=== PATIENT | female | born 1950 | race Caucasian/White ===

== ENCOUNTER → 2023-10-20 14:22 | Outpatient (REF) | payer MEDICARE, OTHER, SELFPAY | LOC: RAD 14:22 | PROVIDERS: ATTENDING PHYSICIAN Podiatrist Foot & Ankle Surgery; FAMILY PHYSICIAN Internal Medicine | DX: I73.9 Peripheral vascular disease, unspecified (principal) | CPT/HCPCS: 93925 ==

== ENCOUNTER → 2023-12-27 06:27 | Day surgery (SDC) | payer MEDICARE, OTHER, SELFPAY ==
[2023-12-27 07:50] LABS: Glucose - Point of Care 113 mg/dl (70-99)
== END ==
LOC: GI 06:27
PROVIDERS: ATTENDING PHYSICIAN Internal Medicine
DX: Z12.11 Encounter for screening for malignant neoplasm of colon (principal); D12.3 Benign neoplasm of transverse colon; K63.5 Polyp of colon; K57.30 Diverticulosis of large intestine without perforation or abscess without bleeding; Z86.010 Personal history of colon polyps
CPT/HCPCS: 45385; 45380; 88305; 82962

== ENCOUNTER 2024-11-26 02:34 | Inpatient (IN) | payer MEDICARE, OTHER, SELFPAY ==
[2024-11-25 19:44] VITALS: BP 121/87
[2024-11-25 21:43] VITALS: BMI 29.8
--- NOTE | 2024-11-25 21:57 | EDRN ---
Pt says on November 14 pt walked down the steps and did not hold on with both hands. Pt slid the last two stairs injuring L buttock (bruise). Pt went to exercise class on Tuesday and says she usually half stands/sits. Pt unable to do exercises while
standing and says she started getting worse. Walking more difficult so pt went to her doctor this week and was told to take naproxen which did not help her pain. Pt says 2 days ago she became incontinent of urine - if she walked she urinated and
she is not wearing a diaper. Pt now has pain with walking, sitting and laying - much worse when standing/walking. Pt went to pain management doctor on Tuesday and had an epidural. Pt had a MRI Tuesday of her back and has the disc with her.
Incontinence started yesterday and pain is getting worse daily. Pain is in lower back, R groin and down R leg. Pt notes intermittent numbness in R leg. No weakness. No pain medication taken since epidural on Tuesday. No fevers. Pt notes urinary
frequency, no blood or burning with urination.
[2024-11-25 22:05] VITALS: BP 142/77
--- NOTE | 2024-11-25 22:22 | ED.GENMED ---
History of Present Illness
General
Chief Complaint: Generalized Pain
Time Seen by Provider: 11/25/24 21:52
History of Present Illness
History of Present Illness:
Patient is 74-year-old woman with history of hypertension, hyperlipidemia, diabetes presenting to the emergency department back pain. Patient states that on November 14 she fell down 2 steps landing on her right buttocks. She developed some back pain.
6 days ago she was at a workout class when she was having difficulty secondary to the pain. She went to her pain management doctor who gave her her injection but she did not have any relief. She states that the pain is in her right lower back and
radiates down her right leg. No saddle anesthesia. No numbness tingling. She does have weakness secondary to the pain. She did get an MRI completed 2 days ago from her pain management doctor. Yesterday she developed urinary incontinence that
has been ongoing so she came in for further evaluation
Phy Exam
Physical Exam
Physical Exam:
GENERAL: in no acute distress
HEENT: normocephalic, extraocular movements intact, moist oral mucosa
NECK: normal inspection
Back: Tenderness to the lower right back around L4-L5
RESPIRATORY: no respiratory distress, clear to auscultation bilaterally
CARDIOVASCULAR: regular rate and rhythm
ABDOMEN/: soft, non-distended, non-tender to palpation, no rebound or guarding
EXTREMITIES: non-tender, no edema/swelling
NEUROLOGIC: alert and oriented x 3, cranial nerves II-XII intact, right upper extremity strength 5/5, left upper extremity strength 5/5, right lower extremity strength 5/5, left lower extremity strength 5/5, normal sensation to light touch, normal
[id number] and fydj-mt-geib, gait not tested formally, positive straight leg raise to the right leg
SKIN: warm
Course
Orders/Labs/Results
Orders:
Orders
11/25/24 22:22
Bladder Scan- Treatment ONCE
Comment: post void
11/25/24 22:31
Urinalysis Reflex To Culture Urgent
Date Specimen was Collected: 11/25/24
Time Specimen was Collected: 22:29
11/25/24 23:11
CR Lumbar Spine 2 Or 3 Views Urgent
Comment:
Reason For Exam: ttp l4/l5
11/26/24 01:05
Basic Metabolic Panel Urgent
Complete Blood Count/With Diff Urgent
Abnormal Lab Results
11/25/24
22:31
Urine Glucose 4+ A
(Negative)
Vital Signs
Initial and Last Documented VS:
Initial Vital Signs
Temp Pulse Resp BP Pulse Ox
98.7 F 81 16 121/87 98
11/25/24 19:44 11/25/24 19:44 11/25/24 19:44 11/25/24 19:44 11/25/24 19:44
Last Documented Vital Signs
Temp Pulse Resp BP Pulse Ox
98.7 F 72 16 142/77 98
11/25/24 19:44 11/25/24 22:05 11/25/24 22:05 11/25/24 22:05 11/25/24 22:05
MDM/Problems Addressed
Differential Diagnosis Includes:
Patient is a 74-year-old woman presenting to the emergency department back pain that radiates down her leg now with urinary incontinence. No saddle anesthesia. No weakness. Vitals are unremarkable. C exam is reassuring given that patient has
equal strength in her bilateral lower extremities with no sensory deficits. Oncern for radiculopathy versus compression fracture. Could be complication from epidural injection. Less likely cauda equina as patient does not have any saddle
anesthesia or any neurodeficits. Urinary incontinence could be secondary to urine infection as she has been having some frequency as well. Patient did have the MRI imaging disc that has not been read. Discussed with radiology who will review the
study but recommends to start off with xray in the interim.
*Critical Care Note
Total Time (30-74mins, 75-104mins- exclusive of procedures): Not Applicable
Update Note
Update Note:
post void residual is 0. urine is not infected
Patient is able to read the MRI. I did receive a critical call from them as there is a large epidural collection in the top of L3 down to L5-S1 that is about 7 cm in length 1.6 cm in width. This is causing severe spinal stenosis and compression of
the nerve roots most pronounced at L3-L4 and L4-L5. I did immediately discuss the results with Dr. Hendrickson from neurosurgery. Given the patient's not having any urinary retention and is ambulating around the room with equal strength in the lower
extremities that we can admit her to the hospital here and obtain repeat MRI in the morning to see if there is any changes from this MRI completed 2 days ago. Depending on the results of the MRI plan for surgical evacuation versus medical
management. Discussed with hospitalist who excepted patient to their service.
ED Attending Note
-
Portions of this chart may have been created with voice recognition software.� Occasional wrong word or��sound alike� substitutions may have occurred due to the inherent limitations of voice recognition software.
Discharge Plan
Departure
Patient Disposition: Admit
Date of Disposition: 11/26/24
Time of Disposition: 01:14
Presentation/result/management discussed w/ accepting MD/DO: Hospitalist
Discharge Problem:
Back pain
Prescriptions:
No Action
atorvastatin 40 mg Tablet
40 mg PO DAILY
carvedilol 12.5 mg Tablet
12.5 mg PO BID
sucralfate 100 mg/mL Suspension
10 ml PO QIDPRN PRN (Reason: reflux)
famotidine 40 mg Tablet
40 mg PO DAILY
amlodipine 5 mg Tablet
5 mg PO DAILY
spironolactone 25 mg Tablet
25 mg PO BID
modafinil 200 mg Tablet
200 mg PO BID
montelukast 10 mg Tablet
10 mg PO DAILY
zaleplon 10 mg Capsule
10 mg PO HS PRN (Reason: sleep)
ipratropium bromide 42 mcg (0.06 %) Walton,Non-Aerosol
1 spray INTRANASAL BID
losartan 100 mg Tablet
100 mg PO DAILY
finasteride 5 mg Tablet
2.5 mg PO DAILY
ezetimibe 10 mg Tablet
10 mg PO DAILY
metformin 500 mg Tablet Extended Release 24hr
500 mg PO DAILY
omeprazole-sodium bicarbonate 40-1.1 mg-gram Capsule
1 cap PO DAILY
cholecalciferol (vitamin D3) [Vitamin D3] 25 mcg (1,000 unit) Tablet
25 mcg PO DAILY
Gaviscon 80-14.2 mg Tablet,Chewable
1 tab PO DAILY PRN (Reason: reflux)
azelastine-fluticasone 137-50 mcg/spray Walton,Non-Aerosol
1 spray INTRANASAL BID
loteprednol etabonate 0.5 % Drops,Gel
1 drp BOTH EYES BID
dapagliflozin propanediol 5 mg Tablet
5 mg PO DAILY
Arnuity Ellipta 100 mcg/actuation Blister With Device
1 inh INHALATION DAILY
Mounjaro 5 mg/0.5 mL Pen Injector
5 mg SC QWEEK
Referrals:
UNKNOWN - PT DOES,NOT KNOW [Family Provider]
Interventions
Interventions:
*Risk Screen - Suicide Last Done: 11/25/24 19:44
*General Assessment Last Done: 11/25/24 21:43
*Neglect/Abuse Screening Last Done: 11/25/24 19:44
*ED- Fall Risk Assessment Last Done: 11/25/24 19:44
Discharge Date and Time
Print Language: SWEDISH
[2024-11-25 22:37] LABS: Urine Albumin Negative (Neg - Trace); Urine Bilirubin Negative (Negative); Urine Character Clear (Clear); Urine Color Yellow; Urine Glucose 4+ (Negative); Urine Ketone Negative (Negative); Urine Leukocyte Negative (Negative); Urine Nitrite Negative (Negative); Urine Occult Blood Negative (Negative); Urine Specific Gravity 1.005 (<1.030); Urine Urobilinogen Negative (Neg - 1+)
[2024-11-26] VITALS (16 sets, daily range): BP systolic 116–145; BP diastolic 72–106; PULSE 68–85
[2024-11-26 01:39] LABS: % Basophils 0.4 % (0-2); % Eosinophils 0.1 % (0-6); % Immature Granulocytes 2.2 % (0-0.5); % Monocytes 7.7 % (1.7-9.3); % Neutrophils 80.6 % (42.2-75.2); Absolute Basophils 0.1 10^3/uL (0-0.2); Absolute Immature Granulocytes 0.3 10^3/uL (0-0.05); Absolute Monocytes 0.9 10^3/uL (0.1-0.6); Absolute Neutrophils 9.3 10^3/uL (1.4-6.5); Hemoglobin 14.1 g/dL (12.0-16.0); Mean Corp Hgb Conc. 34.4 g/dL (33.0-37.0); Mean Corpuscular Hgb 33.3 pg (27.0-31.0); Mean Corpuscular Volume 96.9 fL (81.0-99.0); Mean Platelet Volume 9.6 fL (7.4-10.4); Nucleated Red Blood Cells % 0 %; Platelet Count 312 10^3/uL (130-400); Red Blood Cell Count 4.23 10^6/uL (4.20-5.40); Red Cell Dist. Width 14.6 % (11.5-14.5); White Blood Cell Count 11.6 10^3/uL (4.8-10.8)
[2024-11-26] MEDS: MORPHINE SULFATE 2 MG IV ×3 (01:56→19:16)
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
[2024-11-26 02:10] LABS: Blood Urea Nitrogen 38 mg/dl (7-17); Calcium 9.9 mg/dl (8.4-10.2); Carbon Dioxide 21 mmol/L (22-30); Chloride 109 mmol/L (98-107); Estimated Creatinine Clearance 64 ml/min; Glucose 171 mg/dl (70-99); Sodium 140 mmol/L (135-145); eGFR > 60.00
--- NOTE | 2024-11-26 02:34 | EDRN ---
Pt is an IMU admission assigned bed in ICU - attempted to call report, will call back
--- NOTE | 2024-11-26 02:43 | EDRN ---
Report given to ICU
--- NOTE | 2024-11-26 03:18 | PTCARENOTE ---
Pt. arrived from ED as IMU Overflow.
Used walking sticks to ambulate to bed.
Hemodynamically stable. Placed on Nightly CPAP per resp.
Plan of care explained, very argumentative, all questions answered.
--- NOTE | 2024-11-26 07:39 | W.PN.UPDATE ---
Update Note
Progress Note Update
Full consult to follow.
I was contacted overnight by Dr. Roland re: patient's presentation and exam.
Hx of L3-5 fusion with interbody fusion.
Patient reported to have exacerbation of chronic back pain which prompted [place] on 11/23/24, prior to her previously scheduled MRI lumbar spine.
Patient with worsening pain and reported urinary incontinence. However, in ED, I was informed that PVR was 0.
Reported normal/baseline strength in legs.
Imaging without contrast reviewed which demonstrates collection in epidural space from L3-5/S1 where previous laminectomy is.
Some gas in epidural space which is likely periprocedural.
Diff Dx: epidural hematoma vs CSFoma, vs abscess, less likely.
Given patient is already decompressed and that PVR is reportedly normal, recommended with MRI lumbar spine with and without contrast to better evaluate.
Will follow and evaluate patient later today.
[2024-11-26 07:47] LABS: Glucose - Point of Care 106 mg/dl (70-99)
[2024-11-26] MEDS: FLOVENT 44 MCG INHALER 1 PUFF INH ×2 (08:32→19:27)
[2024-11-26] MEDS: ALDACTONE 25 MG PO (08:42)
[2024-11-26] MEDS: PEPCID 40 MG PO (08:42)
[2024-11-26] MEDS: PROTONIX 40 MG PO (08:42)
[2024-11-26] MEDS: NORVASC 5 MG PO (08:43)
[2024-11-26] MEDS: PROSCAR 2.5 MG PO (08:43)
[2024-11-26] MEDS: LIPITOR 40 MG PO (08:43)
[2024-11-26] MEDS: SINGULAIR 10 MG PO (08:43)
[2024-11-26] MEDS: COREG 12.5 MG PO (08:43)
[2024-11-26] MEDS: FARXIGA 5 MG PO (08:51)
--- NOTE | 2024-11-26 12:35 | PTCARENOTE ---
Pt was rec'd this am from night RN at 07:15, AOx3, assisted oob to bathroom with standby assist and RW +voided in toilet, assisted back into chair, plan discussed with patient, pt is NPO awaiting repeat MRI. Medications and assessment as documented.
Pt with call solo in hand. Safe environment maintained.
[2024-11-26 12:53] LABS: Glucose - Point of Care 88 mg/dl (70-99)
--- NOTE | 2024-11-26 12:56 | CM ---
Initial assessment completed with patient and . Patient lives with her in a 2 story plus basement home with B/B on 2nd with 1/2 bath on 1st, 3 steps to enter. [employer] patient was independent in ADL's and ambulation with walking sticks.
Patient also has an electric scooter which she uses infrequently, SPC, RW and a CPAP that she uses every HS. She does drive. No in-home services. No HC-POA, POA documentation provided.
No service. Pharmacy is [facility] and PCP is Dr. Mani Nelson. Discharge Plan of Care: TBD. Anticipate home with no needs vs HH PT vs Outpatient PT.
--- NOTE | 2024-11-26 13:11 | PTCARENOTE ---
Pt reassessed, comfortable, playing on cell phone. No needs at this time. MRI dept contacted to coordinate timing, message left.
--- NOTE | 2024-11-26 13:35 | PTCARENOTE ---
Addendum entered by Sofia Kimbrough RN 11/26/24 13:47:
CM clarified she did not discuss mediations with patient and . Pharmacist did go in room to discuss medications with patient earlier, and she stated she will reinforce home med administration with patient and her who is now at
bedside.
Original Note:
Pt's call solo answered, she requested to go to bathroom, stated 'she pressed the button and someone turned it off'. Education provided re: call solo system. This RN noticed blue pill sitting on paper towel on bedside table. When asked
patient and her what it was, they stated that it was her 'sleeping pill' and that they were told in the ER by nurse and doctor to bring her meds in from home and use them. Education provided again re: medication administration in the
hospital and procedures for non formulary meds being barcoded by pharmacy to be administered. Pt and increasingly argumentative with this RN, insisting that the 'lady in the white sweater' (referring to CM) told them to bring in sleeping
pill from home because patient stated she can't take Ambien because she 'fell off a chair onto the floor and chewed a perfect hole in a matzoh.' accusing this RN of 'Coming at him' he continued to talk over the patient as well as this RN,
education again provided about medication and safe administration. Pt assisted into bathroom and instructed to call for assistance if needed. Safe environment maintained.
--- NOTE | 2024-11-26 13:56 | W.PN.HOSP.TC ---
Addendum entered and electronically signed by Kyle Cross MD 11/26/24 18:55:
I have recommended to stay 1 additional night to assess urination along with ambulation. However not interested and wants to be discharged home tonight. PT did evaluate her earlier today recommended home health versus outpatient therefore case
management consulted. She did request oral morphine to go home with. PDMP checked no recent morphine scripts noted. Has hydromorphone, oxycodone, tapentadol and tramadol allergies with hives.
Original Note:
Today's Communication/Plan
-
Assessment / Plan
Assessment / Plan
NAD
Scleral Anicteric
MMM
No JVD
CTABL
RRR, S1/S2
Soft, NT, ND, BS+
Warm, Dry
AAOx3
Calm
Acute on chronic back pain with associated urinary incontinence. MRI report per ED documentation large epidural collection in the top of L3 down to L5-S1 that is about 7 cm in length 1.6 cm in width. This is causing severe spinal stenosis and
compression of the nerve roots most pronounced at L3-L4 and L4-L5.
-ED discussed with neurosurgery given that the patient is not having urinary retention is ambulating around the room but equal strength lower extremities obtain MRI in the morning to assess for changes in comparison to previous MRI 2 days previous.
-MRI pending
-If worsening MRI findings then may need decompressive neurosurgical intervention and steroids
-Continue neurovascular checks every 4 hours
-If neurovascularly decompensating/changing then may need steroids/decompressive surgery and immediate neurosurgical evaluation
-Neurosurgery consulted
Hypertension
Continue antihypertensives
GERD
Continue PPI
Diabetes type 2
Hold metformin/Mounjaro
SSI
Accu-Cheks
Blood glucose 140-180
GERD
Continue PPI
[place]
Continue nightly PAP therapy
Anticipated Discharge: > 48 hours
Subjective/Interval History
-
Date of Service: November 26, 2024
Seen and examined. Laying in bed comfortably. No acute overnight events
Objective Data
-
Labs:
Laboratory Results
11/26/24 11/26/24
01:21 06:00
WBC Cancelled
Hgb Cancelled
Hct Cancelled
Plt Count Cancelled
Sodium 140 Cancelled
Potassium 5.0 Cancelled
Chloride 109 H Cancelled
Carbon Dioxide 21 L Cancelled
BUN 38 H Cancelled
Creatinine 0.7 Cancelled
Glucose 171 H Cancelled
Calcium 9.9 Cancelled
Vital Signs:
Vital Signs
Temp Pulse Resp BP Pulse Ox
98.3 F 75 14 119/103 98
11/26/24 11:30 11/26/24 12:00 11/26/24 12:00 11/26/24 12:00 11/26/24 08:23
I&O
11/25/24 11/26/24 11/27/24
06:59 06:59 06:59
Intake Total 120 / 120
Balance 120 / 120
--- NOTE | 2024-11-26 15:34 | PTCARENOTE ---
MRI dept called at approx 2:45 to ask RN to send patient at 4 pm. updated, patient sleeping.
MRI called back to say they cannot take patient at 4 pm after all, will call to request patient be sent down when able. updated again. stated 'that's ok, just as long as it's getting scheduled.'
--- NOTE | 2024-11-26 16:35 | PTCARENOTE ---
Pt sent for MRI at approx 16:10.
[2024-11-26 18:02] LABS: Glucose - Point of Care 92 mg/dl (70-99)
--- NOTE | 2024-11-26 18:03 | CON.NS ---
Consultation
-
Date/Time Consultation Performed: 11/26/2024; 18:00
Performing Provider: Madhavi
Chief Complaint
History of Present Illness
This is a neurosurgical consultation on a 74-year-old female that presented with back pain, and urinary changes.
She has active medical issues including hypertension, chronic back pain/degenerative disc disease, who presented with back pain, and ambulatory dysfunction. She had a reported fall on 11/14/2024. Is reported that she was walking down the stairs,
when she slid down and landed hard on her backside. After that, she attended a college reunion, and did a significant amount of walking and then has been developing increasing back pain. She reports initial right low back pain, with radiation into
the right groin, right leg. She is her pain management doctor on 11/23/2024, and received a epidural steroid injection. She then subsequently underwent a planned MRI on 11/23/2024. Given her increasing symptoms, and urinary incontinence, she
presented to the emergency room. The MRI report after her epidural injection reported a large epidural collection from L3-S1 with air in the epidural space. I was informed by the ER doctor overnight about her symptomatology. Ultimately, I
recommended repeating an MRI scan. It was reported that the patient had been ambulatory, without any postvoid residual after voiding.
Patient presents back after MRI today.
Patient seen and examined. is at bedside. Patient reports that she has had no difficulty urinating today. However, at home, she noted that she was voiding without any sensation or noticed that she had to go urinate.
She reports ongoing, but chronic symptoms of right sided lateral hip, and anterior groin pain, with intermittent radiation distally down the leg.
Review of Systems
-
10 point review of systems including constitutional, ENT, cardiovascular, respiratory, GI, , neurologic, and quality, hematologic, neurologic was performed, was negative except for as stated in HPI.
Medication and Allergies
Home Medications
Home Medications
�Medication �Instructions �Recorded
Al hyd-Mg tr-alg ac-sod bicarb 80 1 tab PO DAILY PRN reflux 11/25/24
mg-14.2 mg chewable tablet
amlodipine 5 mg tablet 5 mg PO DAILY Blood Pressure 11/25/24
atorvastatin 40 mg tablet 40 mg PO DAILY High Cholesterol 11/25/24
azelastine 137 mcg-fluticasone 50 1 spray intranasal BID Allergies 11/25/24
mcg/spray nasal spray
carvedilol 12.5 mg tablet 12.5 mg PO BID Blood Pressure 11/25/24
cholecalciferol (vitamin D3) 25 25 mcg PO DAILY Supplement 11/25/24
mcg (1,000 unit) tablet (Vitamin
D3)
dapagliflozin propanediol 5 mg 5 mg PO DAILY Diabetes 11/25/24
tablet
ezetimibe 10 mg tablet 10 mg PO DAILY High Cholesterol 11/25/24
famotidine 40 mg tablet 40 mg PO DAILY Gastrointestinal 11/25/24
Issue
finasteride 5 mg tablet 2.5 mg PO DAILY Hormonal Agent 11/25/24
fluticasone furoate 100 1 inh inhalation DAILY 11/25/24
mcg/actuation blister powder for Lung/Breathing Issues
inhalation (Arnuity Ellipta)
ipratropium bromide 42 mcg (0.06 1 spray intranasal BID 11/25/24
%) nasal spray Lung/Breathing Issues
losartan 100 mg tablet 100 mg PO DAILY Blood Pressure 11/25/24
loteprednol etabonate 0.5 % eye 1 drp BOTH EYES BID Eye Condition 11/25/24
gel drops
metformin 500 mg tablet,extended 500 mg PO DAILY Diabetes 11/25/24
release 24hr (osmotic)
modafinil 200 mg tablet 200 mg PO BID@0800,1400 11/25/24
Neurological Condition
montelukast 10 mg tablet 10 mg PO DAILY Allergies 11/25/24
omeprazole 40 mg-sodium 1 cap PO DAILY Gastrointestinal 11/25/24
bicarbonate 1.1 gram capsule Issue
spironolactone 25 mg tablet 25 mg PO BID Fluid 11/25/24
Retention/Swelling
sucralfate 100 mg/mL oral 10 ml PO QIDPRN PRN reflux 11/25/24
suspension
tirzepatide 5 mg/0.5 mL 5 mg SC QWEEK Diabetes 11/25/24
subcutaneous pen injector
(Mounjaro)
zaleplon 10 mg capsule 10 mg PO HS PRN sleep 11/25/24
Allergies
Allergies
Allergy/AdvReac Type Severity Reaction Status Date / Time
hydromorphone (From Dilaudid) Allergy Hives Verified 11/25/24 21:56
oxycodone Allergy Hives Verified 11/25/24 21:56
tapentadol Allergy Hives Verified 11/25/24 21:56
tramadol Allergy Hives Verified 11/25/24 21:56
Physical Exam
-
Exam:
Awake, alert, no apparent distress
Cranial nerves II to XII grossly intact
Motor: 5/5 strength in upper extremities. 5/5 strength in left lower extremity. 4/5 strength in right hip flexion, knee extension secondary to pain.
Jamia's negative bilaterally
Sensation to light touch is intact bilaterally in lower extremities.
Postvoid residual performed at approximately 6:10 PM is 0
Head is normocephalic atraumatic
Neck is supple
Breathing nonlabored
Abdomen is soft
Cardiac regular rate
Extremities are warm
MRI of the lumbar spine performed with and without contrast at on 11/26/2024 at approximately 5 PM was reviewed. Images compared with previous MRI performed on 11/23/2024.
The epidural collection that was noted from L3-L5 is no longer present, and has since resolved. Patient has full surgical changes noted from L3-L5. There is subtle right paracentral disc protrusion noted at L2-L3 on the right, as well as L1-L2.
The right L2-L3 foraminal stenosis appears to be slightly progressed when compared with previous MRI performed in August 2022.
STIR signal sequences failed to demonstrate any obvious evidence of hyperintensity to suggest acute injury.
Problems
-
Problem Status Onset Code
Back pain Acute M54.9
Assessment / Plan
-
This is a 74-year-old female that presents acute exacerbation of chronic back pain, who underwent an epidural steroid injection on 11/23/2024, and then subsequently underwent planned MRI scan. That MRI from 11/23/2024 demonstrated an epidural
collection, which is consistent with the fact that the patient likely had a steroid injection at that level. Today, 3 days later, that epidural collection has since resolved. There is no evidence of new or acute compression that is seen. Patient
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
No neurosurgical intervention is recommended at present time.
Can try Medrol Dosepak for discharge for radiculopathy.
Follow-up with primary pain management doctor following discharge.
I discussed with patient, and her her MRI results. If she fails to improve from most recent epidural steroid injection, can consider right L1-L2, L2-L3 [place].
--- NOTE | 2024-11-26 18:36 | PTCARENOTE ---
MRI completed, Dr. Hendrickson instructed this RN to check PVR...result was 0. Results of MRI communicated to patient by Dr. Hendrickson, attending Dr. Cross updated as well. Dr. Hendrickson in room to assess and update patient. Med Surg orders rec'd. Pt and
updated. Pt is asking if she can go home tonight, per Dr. Cross, will dc home tomorrow.
--- NOTE | 2024-11-26 18:53 | W.DCSUMMARY ---
Addendum entered and electronically signed by Kyle Cross MD 11/26/24 18:59:
Neurosurgery believes that the epidural collection noted was likely related to LESI rather than a fluid collection. Per the message I received via [employer] from neurosurgery.
Original Note:
Discharge Summary
Discharge Data
Date of Admission: 11/26/24
Date of Discharge: 11/26/24
-
Pending Results: No
Hospital Course
74y F with PMH significant for hypertension, DM-II and chronic back pain / DDD
Presented with urinary incontinence worsening back pain and a recent MRI prior to presenting to the hospital that showed a large epidural collection in the L3 S1 area. Was evaluated by neurosurgery that recommended to obtain an MRI. MRI was
reviewed by neurosurgery and compared with previous with determination that the epidural collection that was noted at L3-L5 is no longer present and has since resolved. Therefore at this time neurosurgery has recommended discharge home. Was
evaluated by physical therapy recommended outpatient versus home health.
Will need to continue follow-up with outpatient pain management and neurosurgery follow-up
L-spine xray
IMPRESSION:
Intact orthopedic hardware. No radiographically demonstrable vertebral compression deformity. Degenerative changes.
Lspine MRI per Neurosurgery
The epidural collection that was noted from L3-L5 is no longer present, and has since resolved. Patient has full surgical changes noted from L3-L5. There is subtle right paracentral disc protrusion noted at L2-L3 on the right, as well as L1-L2.
The right L2-L3 foraminal stenosis appears to be slightly progressed when compared with previous MRI performed in August 2022
Discharge Plan
-
Patient Disposition: Home with Home Care
Discharge Diagnosis/Procedures: Back pain with associated urinary continence
Condition: Fair
Diet: As tolerated and Diabetic, Carb Controlled
Activity: No restrictions
Activity Restrictions/Additional Instructions:
Presented with urinary incontinence worsening back pain and a recent MRI prior to presenting to the hospital that showed a large epidural collection in the L3 S1 area. Was evaluated by neurosurgery that recommended to obtain an MRI. MRI was
reviewed by neurosurgery and compared with previous with determination that the epidural collection that was noted at L3-L5 is no longer present and has since resolved. Therefore at this time neurosurgery has recommended discharge home. Was
evaluated by physical therapy recommended outpatient versus home health.
Will need to continue follow-up with outpatient pain management and neurosurgery follow-up
L-spine xray
IMPRESSION:
Intact orthopedic hardware. No radiographically demonstrable vertebral compression deformity. Degenerative changes.
Lspine MRI per Neurosurgery
The epidural collection that was noted from L3-L5 is no longer present, and has since resolved. Patient has full surgical changes noted from L3-L5. There is subtle right paracentral disc protrusion noted at L2-L3 on the right, as well as L1-L2.
The right L2-L3 foraminal stenosis appears to be slightly progressed when compared with previous MRI performed in August 2022
Referrals:
Hayley Hendrickson MD [Active, Neurosurgery] - in two weeks
UNKNOWN - PT DOES,NOT KNOW [Family Provider]
Prescriptions:
New
morphine 15 mg tablet
15 mg PO BID PRN (Reason: Pain) Qty: 6 0RF
Continued
atorvastatin 40 mg Tablet
40 mg PO DAILY
carvedilol 12.5 mg Tablet
12.5 mg PO BID
sucralfate 100 mg/mL Suspension
10 ml PO QIDPRN PRN (Reason: reflux)
famotidine 40 mg Tablet
40 mg PO DAILY
amlodipine 5 mg Tablet
5 mg PO DAILY
spironolactone 25 mg Tablet
25 mg PO BID
modafinil 200 mg Tablet
200 mg PO BID@0800,1400
montelukast 10 mg Tablet
10 mg PO DAILY
zaleplon 10 mg Capsule
10 mg PO HS PRN (Reason: sleep)
ipratropium bromide 42 mcg (0.06 %) [place],Non-Aerosol
1 spray INTRANASAL BID
losartan 100 mg Tablet
100 mg PO DAILY
finasteride 5 mg Tablet
2.5 mg PO DAILY
ezetimibe 10 mg Tablet
10 mg PO DAILY
metformin 500 mg Tablet Extended Release 24hr
500 mg PO DAILY
omeprazole-sodium bicarbonate 40-1.1 mg-gram Capsule
1 cap PO DAILY
cholecalciferol (vitamin D3) [Vitamin D3] 25 mcg (1,000 unit) Tablet
25 mcg PO DAILY
azelastine-fluticasone 137-50 mcg/spray [place],Non-Aerosol
1 spray INTRANASAL BID
loteprednol etabonate 0.5 % Drops,Gel
1 drp BOTH EYES BID
dapagliflozin propanediol 5 mg Tablet
5 mg PO DAILY
Arnuity Ellipta 100 mcg/actuation Blister With Device
1 inh INHALATION DAILY
Mounjaro 5 mg/0.5 mL Pen Injector
5 mg SC QWEEK
Discontinued
Gaviscon 80-14.2 mg Tablet,Chewable
1 tab PO DAILY PRN (Reason: reflux)
Discharge Orders:
Discharge Patient (As Directed); Ordered 11/26/24
Ordered By: Kyle Cross
Discharge Date and Time
Print Language: LITHUANIAN
--- NOTE | 2024-11-26 19:26 | PTCARENOTE ---
Per lai Ross to discharge tonight. Home med list reviewed, discharge paperwork reviewed.
--- NOTE | 2024-11-27 08:58 | CM ---
Patient medically cleared for discharge to home with no additional skilled needs on 11/26/24 in PM. transported home.
== END 2024-11-26 19:43 | disposition home or self-care (01) | DRG 552 ==
LOC: ICU 02:34
PROVIDERS: ADMITTING PHYSICIAN Hospitalist; ATTENDING PHYSICIAN Hospitalist; EMERGENCY PHYSICIAN Student in an Organized Health Care Education/Training Program; OTHER PHYSICIAN Neurological Surgery
DX: M51.16 Intervertebral disc disorders with radiculopathy, lumbar region (principal); E11.36 Type 2 diabetes mellitus with diabetic cataract; I10 Essential (primary) hypertension; E78.5 Hyperlipidemia, unspecified; R53.1 Weakness; R32 Unspecified urinary incontinence; M48.061 Spinal stenosis, lumbar region without neurogenic claudication; K21.9 Gastro-esophageal reflux disease without esophagitis; G89.4 Chronic pain syndrome; G47.33 Obstructive sleep apnea (adult) (pediatric); J45.909 Unspecified asthma, uncomplicated; L40.9 Psoriasis, unspecified; W10.8XXA Fall (on) (from) other stairs and steps, initial encounter; Y93.01 Activity, walking, marching and hiking; Y92.9 Unspecified place or not applicable; Z96.653 Presence of artificial knee joint, bilateral; Z79.84 Long term (current) use of oral hypoglycemic drugs; Z79.51 Long term (current) use of inhaled steroids; Z79.85 Long-term (current) use of injectable non-insulin antidiabetic drugs; Z98.1 Arthrodesis status; Z88.5 Allergy status to narcotic agent; Z88.8 Allergy status to other drugs, medicaments and biological substances
CPT/HCPCS: 72100; 72158; 80048; 81003; 82962; 83036; 85025; 94640; 94660; 96374; 97163; 97167; 99285; A9575

== ENCOUNTER 2025-02-28 06:16 | Day surgery (SDC) | payer MEDICARE, OTHER, SELFPAY ==
[2025-02-28 10:25] LABS: Glucose - Point of Care 114 mg/dl (70-99)
== END 2025-02-28 11:48 | disposition home or self-care (01) ==
LOC: GI 06:16
PROVIDERS: ATTENDING PHYSICIAN Internal Medicine
DX: K22.2 Esophageal obstruction (principal); K44.9 Diaphragmatic hernia without obstruction or gangrene; K31.7 Polyp of stomach and duodenum; K29.70 Gastritis, unspecified, without bleeding; R13.10 Dysphagia, unspecified
CPT/HCPCS: 43249; 43239; 82962; 88305; 88342